=== PATIENT | male | born 2000 | race Two or more races ===

== ENCOUNTER 2022-03-25 10:05 | Inpatient (IN) | payer OTHER ==
--- NOTE | 2022-03-25 10:28 | NUR ---
PTE VIENE POR REFERIDO MEDICO. SE OBSERVA ALERTA Y ORIENTADO X 3.
--- NOTE | 2022-03-25 10:55 | NUR ---
PTE. EVALUADO POR DRA [place]ALL [place]. SE ORIENTA PTE. Y FAMILIAR SOBRE [place], LO CUAL REFIEREN ENTENDER. SE REALIZA VENOPUNCION ANGIO #18 LA, PATENTE AREA ANA DE EDEMA Y ERITEMA. SE REALIZA MARITZA DE MUESTRAS BAJO MEDIDAS ASEPTICAS Y SE ENTREGA ENVASE PARA U/A. SE NOTIFICA ESTUDIO CON CONTRASTE POR VENA Y PO, PTE PENDIENTE A REALIZARSE EL MISMO.
== END 2022-03-28 11:14 | disposition home or self-care (01) | DRG 866 ==
LOC: EMR PED 10:05 → SEC-K 17:55 → OB/GYN 03-26 15:26 → PED 03-27 17:41
PROVIDERS: ADMIT Emergency Medicine; ATTEND Emergency Medicine
PROC: BW21Y0Z Computerized Tomography (CT Scan) of Abdomen and Pelvis using Other Contrast, Unenhanced and Enhanced (ICD-10-PCS; principal; 2022-03-25)
DX: B27.90 Infectious mononucleosis, unspecified without complication (principal); R50.9 Fever, unspecified; R16.2 Hepatomegaly with splenomegaly, not elsewhere classified; Z20.822 Contact with and (suspected) exposure to COVID-19